=== PATIENT | female | born 1950 | race Caucasian/White ===

== ENCOUNTER 2017-09-21 05:37 | Inpatient (IN) | payer MEDICARE ==
[2017-09-21 06:16] LABS: Hematocrit 39.6 % (36.0-47.0); Mean Platelet Volume 9.2 fL (7.4-10.4); Red Blood Cell (RBC) Count 4.34 mill/uL (4.20-5.40); White Blood Cell (WBC) Count 21.4 thou/uL (4.8-10.8)
[2017-09-21 06:22] LABS: PTT 34.7 SEC (22.9-36.1); Prothrombin Time 15.8 SEC (12.0-14.7)
[2017-09-21 06:26] LABS: Lactic Acid - Sepsis 1.5 mmol/L (0.5-2.2)
[2017-09-21 06:32] LABS: ALT (SGPT) 16 U/L (8-55); AST (SGOT) 27 U/L (5-34); Alkaline Phosphatase 54 U/L (40-150); Anion Gap 12 mmol/L (10-20); BUN (Urea Nitrogen) 17 mg/dL (9.8-20.1); Band 6 % (5-11); Calc. Creatinine Clearance 0 mL/min (70-130); Calcium 8.5 mg/dL (7.8-10.44); Carbon Dioxide 26 mmol/L (23-31); Chloride 103 mmol/L (98-107); Estimated GFR-MDRD 59; Globulin 3.2 g/dL (2.4-3.5); Neutrophil 85 % (42-75); Protein, Total 6.5 g/dL (6.0-8.3)
[2017-09-21 07:30] LABS: Bilirubin Negative (Negative); Blood, Urine Moderate (Negative); Glucose, Urine (Dipstick) Negative (Negative); Ketone, Urine Negative (Negative); Nitrite Negative (Negative); Protein, Urine (Dipstick) Negative (Neg-Trace)
[2017-09-21 07:31] LABS: Hyaline Casts/LPF 0-3 HYALINE CAST LPF (0-3 Hyaline); Squamous Epithelial 0-3 HPF (0-3); WBC/HPF 0-3 HPF (0-3)
[2017-09-21 07:48] LABS: Bacteria/HPF 1+ HPF (None Seen); RBC/HPF 0-3 HPF (0-3)
[2017-09-21 07:49] LABS: Yeast-All Forms None Seen HPF (None Seen)
[2017-09-21 08:23] VITALS: BMI 40.4
--- NOTE | 2017-09-21 08:39 | RAD ---
CHEST ONE VIEW: History: Abdominal pain. Comparison: None. FINDINGS: Atherosclerosis of the aorta. Normal cardiac silhouette. The pulmonary vessels and hilum are normal. Costophrenic angles are clear. No masses. No consolidation. No pneumothorax or osseous abnormalities. IMPRESSION: 1. No acute cardiopulmonary process. 2. Atherosclerosis. POS: [facility]
[2017-09-21] MEDS ORDERED: Ondansetron HCl/PF 4 MG/2 ML Vial IVP PRN ×2 (08:40→10:01)
[2017-09-21] MEDS ORDERED: Acetaminophen 325 MG TAB PO PRN (08:40)
[2017-09-21] MEDS ORDERED: Ondansetron ODT 4 MG TAB SL PRN (08:40)
[2017-09-21] MEDS ORDERED: Sodium Chloride 0.9% 1,000 ML IV SCH (08:40)
[2017-09-21] MEDS ORDERED: metroNIDAZOLE 500 MG in Premix Bag 1 BAG IVPB SCH ×2 (09:00→11:00)
[2017-09-21] MEDS ORDERED: Piperacillin/Tazobactam 4.5 GM in Sodium Chloride 0.9% 100 ML IVPB SCH ×2 (10:00→12:00)
[2017-09-21] MEDS ORDERED: Bisacodyl 5 MG TAB PO PRN (10:01)
[2017-09-21] MEDS ORDERED: Ondansetron ODT 4 MG TAB PO PRN (10:01)
[2017-09-21] MEDS ORDERED: cefTRIAXone\\ROCEPHIN 1 GM in Sodium Chloride 0.9% 100 ML IVPB SCH (10:01)
[2017-09-21] MEDS ORDERED: Sodium Chloride 0.9% 500 ML IV SCH (10:30)
[2017-09-21] MEDS: Sodium Chloride 0.9% 1,000 ML IV SCH (11:07)
[2017-09-21] MEDS: cefTRIAXone\\ROCEPHIN 1 GM, Syringe 0.4 ML in Sterile Water 9.6 ML SLOW IVP SCH (11:07)
--- NOTE | 2017-09-21 11:07 | HP ---
PRIMARY CARE PHYSICIAN: [facility], in [place]. CHIEF COMPLAINT: Abdominal pain and hematochezia. HISTORY OF PRESENT ILLNESS: This is a 67-year-old white female with a known history of diverticulosis and polyps on a previous colonoscopy many years ago, possibly with a history of previous diverticulitis or colitis episodes, but they were really self-limited. She reports that she has been having some intermittent cramping pain in her left lower quadrant for the last couple of months. She also has had some weight loss in the last year of about 50 pounds, though she is still quite obese. The patient reports that yesterday around noon , she started having significant cramping left lower quadrant abdominal pain. This did not resolve in 1-2 hours as normal, but lasted all evening. It started after she ate some sausage from [employer]. The patient also ate some cornbread and she was told she should not eat anything with seeds in it or with large pieces like corn. Then last night she had an episode of straining with constipation followed by an episode of diarrhea. She is not certain if it had mucus in it at this time, although she has had previous episode with mucoid diarrhea in the past with her colitis episodes. This was then followed by having quite a few small clots coming out into the toilet. She also had bright red blood when she wiped. The patient had continued pain, so she went to the emergency room at [facility] in [place]. There the patient had a noncontrast CT scan of the abdomen which showed thickening at the upper sigmoid consistent with colitis along with some nearby stranding. She was transferred here for a GI bleed and colitis for a GI consult. The patient was noted to have a significant leukocytosis of 21,000, but no fever, no vital sign abnormalities. She has normal H&H at the outside hospital. PAST MEDICAL HISTORY: 1. Hypertension. 2. Diverticulosis. 3. Recurrent colitis. PAST SURGICAL HISTORY: 1. Hysterectomy. 2. Open cholecystectomy. ALLERGIES: CODEINE causes a rash, also allergic to AZITHROMYCIN, CIPROFLOXACIN , ASPIRIN causes a nosebleed. She has never had a reaction to iodinated contrast, but she has a daughter and mother who both had life threatening reactions, so she does not ever want to get it. MEDICATIONS: 1. Amlodipine 10mg po daily 2. Lisinopril 40mg po daily 3. HCTZ 25mg po daily 4. Loratidine 10mg po daily 5. Tylenol prn 6. Tagament prn SOCIAL HISTORY: The patient smokes 1 pack per day for at least the last 30 years. No alcohol or illicit drug use. She is . FAMILY HISTORY: Mother with diabetes. REVIEW OF SYSTEMS: CONSTITUTIONAL: No fevers. She has had some chills at night for the last couple of months, weight loss as per HPI. HEENT: No double vision or blurred vision. She does occasionally have rainbow color aura without falling migraine. ENT: She has sinus allergies from pollen on and off and no acute changes, no sore throat. CARDIOVASCULAR: No chest pain, no palpitations, no racing heart. PULMONARY: No coughing, wheezing or shortness of breath. GASTROINTESTINAL: See HPI. No nausea or vomiting. She has not had any further bowel movements or blood from her bottom this morning. GENITOURINARY: No dysuria or hematuria. MUSCULOSKELETAL: She has chronic lower extremity bilateral pain on and off from arthritis. No other significant musculoskeletal problems. SKIN: No rashes or other lesions she has noted. NEUROLOGIC: No numbness, tingling or focal weakness. PHYSICAL EXAMINATION: VITAL SIGNS: Blood pressure 83/51 on the floor, but with a pulse of 78, respirations 16, O2 sat 98%, temperature 99.3. GENERAL: This is a well-developed, obese white female in no apparent distress. EYES: Pupils equal, round, and reactive to light. Extraocular movements intact. Oropharynx clear without lesions, erythema or exudate. NECK: Supple, without adenopathy, no thyroid nodules or enlargement. HEART: Regular rate and rhythm, no murmurs, rubs or gallops. LUNGS: Clear to auscultation bilaterally, no wheezes, crackles or rhonchi. ABDOMEN: Soft, tender to palpation and worse in the left upper quadrant and some in her left lower quadrant, mild guarding, no rebound tenderness, no masses palpable. Abdomen is quite obese. EXTREMITIES: No clubbing, cyanosis or edema. SKIN: No rashes or other lesions. NEUROLOGIC: Cranial nerves intact and equal bilaterally without facial droop. Deep tendon reflexes 2+ in all extremities. Strength 5/5 in all extremities. PSYCHIATRIC: Alert and oriented x3, normal mood and affect. LABORATORY: White blood cell count of 21,000, neutrophils 85%, bands 6, hemoglobin and hematocrit are 12.7 and 39.6, platelet count 226. Coagulation profile: PT is a little elevated at 15.8, INR and PTT are normal. Complete metabolic panel was notable only for a potassium of 3.2, glucose of 126 and albumin of 3.3. Urinalysis was without any evidence of infection. EKG: I did review the EKG done in the emergency room. This shows normal sinus rhythm with possible left atrial enlargement and a left bundle branch block. CT scan, I did review the radiology report on the CT scan done at [facility] in [place]. This does show colonic wall thickening involving the primarily splenic flexure of the colon with adjacent stranding suspicious for colitis. ASSESSMENT AND PLAN: 1. Colitis, possibly diverticulitis. The patient does have an elevated white blood cell count, but no fever. She did have some mild hypotension, was asymptomatic here, likely a spurious reading, her previous blood pressures in the emergency room were all in the high 90s systolic, her pulse has not jumped up and she is not on beta blockade currently so it does not appear that she has any sort of significant fluid depletion. The patient's hemoglobin and hematocrit are also normal. At this time, the patient does appear stable. Given the high white count we have started her on IV antibiotics, she got some Zosyn and metronidazole in the emergency room. We will change that to Rocephin and metronidazole combination for diverticulitis. If this causes clinical improvement over the next 24-48 hours, she can be transitioned to oral antibiotics and then the remainder of treatment session at home. 2. Lower gastrointestinal bleed. No evidence of significant blood loss at this time. We will recheck the hemoglobin and hematocrit in the morning. We will give her a little bit of IV fluids. GI has been consulted. For now we will leave her on a clear liquid diet, should they decide to do any sort of endoscopy or other investigation. 3. Hypertension. The patient is currently low normal or hypotensive so we will hold all of her blood pressure medicines at this time. We can resume those if her blood pressure starts coming back up. 4. Gastrointestinal prophylaxis. Put the patient on Pepcid twice a day. 5. Deep venous thrombosis prophylaxis. Put the patient on sequential compression devices and TEDs while in bed. 6. CODE STATUS: The patient is a FULL CODE. Should she be incapacitated her medical decision maker will be her , Sb Evans. MTDD
[2017-09-21] MEDS: metroNIDAZOLE 500 MG in Premix Bag 1 BAG IVPB SCH ×2 (14:14→22:05)
[2017-09-21] MEDS: Acetaminophen 325 MG TAB PO PRN (15:24)
[2017-09-21] MEDS: Famotidine 20 MG TAB PO SCH (20:28)
--- NOTE | 2017-09-22 02:33 | CON ---
DATE OF CONSULTATION: 09/21/2017 REASON FOR CONSULTATION: Rectal bleeding, "colitis." HISTORY OF PRESENT ILLNESS: Ms. Evans is a 67-year-old female who was transferred to this emergency room from [facility] for GI bleeding. She reports that after Thanksgiving, she had been constipated and was really constipated into last night, then ultimately had diarrhea and severe cram ping with this and leaving. She had couple of bouts of diarrhea and then saw the blood and then was having quite a bit of cramping, so went to the emergency room. There, she had a CAT scan that showed some inflammation in the colon in the splenic flexure. She had a white count of 21,000. She was he modynamically stable, although with CAT scan findings and lack of GI or surgical backup at the [facility] in [place], she was transferred here for admission. The patient states she has had intermittent problems with her colon and has been told she had "colitis" and that she cannot eat things with nuts and seeds, times in the past she had been treated for antibiotics and her sisters have had the same p roblem. She reports a weight loss of about 50 pounds in the past year. She denies any dysphagia or odynophagia. She has had a colonoscopy in the remote past, at which time she had a polyp. She does not remember when that was but it was apparently at [facility] in [place], [place]. At the [facility], she had a negative UA, creatinine of 1.2, BUN of 18, white count 21,000, hemoglobin of 13. She was mildly hypotensive with systolics in the 90s. She was admitted from the emergency ro om here to the floor early this morning. PAST MEDICAL HISTORY: Hypertension, history of diverticulitis, history of "colitis," although what s he described sounds more like diverticulitis with no care center manager that follows her on a routine basis. PAST SURGICAL HISTORY: Hysterectomy, open cholecystectomy. ALLERGIES: CODEINE, AZITHROMYCIN, CIPROFLOXACIN, ASPIRIN. MEDICATIONS AT HOME: Amlodipine, lisinopril, hydrochlorothiazide, loratadine, Tylenol, and Tagamet. SOCIAL HISTORY: The patient smokes a pack per day and has for 30 years. She does not use drugs or a lcohol. She is . FAMILY HISTORY: Mother has diabetes. Sisters have colon problems too. REVIEW OF SYSTEMS: Negative for dysphagia, odynophagia, melena, hematochezia, or hematemesis other t josue the hematochezia with this episode. PHYSICAL EXAMINATION: VITAL SIGNS: Temperature 100.3, pulse 78, blood pressure 111/55. LUNGS: Clear. HEART: Regular rate and rhythm, without clicks or murmurs. ABDOMEN: Soft. There is mild tenderness in the left upper quadrant. There is no rebound or guardin g. LABORATORY DATA: Her potassium was 3.2, BUN and creatinine were 17 and 0.94. LFTs were normal. Whi te count was 21,000, hemoglobin was 12.7, platelet count was 226. ASSESSMENT: This is a 67-year-old female who had acute onset of abdominal pain and hematochezia with an area of colitis in the sigmoid colon. This would most likely fit with ischemic colitis. She was mildly hypotensive on arrival at the outside hospital and here, and she was resuscitated with IV flu ids. She has been started on antibiotics of Flagyl and ceftriaxone and she is on IV fluids at 75 mL an hour normal saline and seems to be improving. She has had no bleeding since admission. RECOMMENDATIONS: 1. Continue antibiotics and IV fluids. We will treat her as ischemic colitis. If she has worsening bleeding or decompensation clinically, may need to consider endoscopy, otherwise would likely treat her and see her pain and prove before embarking any type of endoscopy as there is increased risk of p erforation with an acutely inflamed colon. If she begins to have significant diarrhea, we can get a stool for Clostridium difficile. 2. With regard to her history of weight loss, I think it would be reasonable for her to get a chest x-ray. She is a smoker. We will continue to follow along with you.
[2017-09-22] MEDS: Acetaminophen 325 MG TAB PO PRN (04:07)
[2017-09-22 04:47] LABS: #Eosinphils 0.1 thou/uL (0.0-0.7); #Lymphocytes 1.7 thou/uL (1.20-3.40); #Monocytes 0.6 thou/uL (0.11-0.59); #Neutrophils 12.9 thou/uL (1.40-6.50); %Basophils 0.1 % (0.0-1.0); %Eosinophils 0.4 % (0.0-10.0); %Lymphocytes 11.2 % (21.0-51.0); %Monocytes 4.1 % (0.0-10.0); Mean Platelet Volume 9.4 fL (7.4-10.4); White Blood Cell (WBC) Count 15.3 thou/uL (4.8-10.8)
[2017-09-22 04:59] LABS: Anion Gap 6 mmol/L (10-20); BUN (Urea Nitrogen) 11 mg/dL (9.8-20.1); Calc. Creatinine Clearance 126 mL/min (70-130); Calcium 8.2 mg/dL (7.8-10.44); Carbon Dioxide 28 mmol/L (23-31); Chloride 105 mmol/L (98-107); Estimated GFR-MDRD 79
[2017-09-22] MEDS: Potassium Chloride 20 MEQ TAB PO SCH ×2 (06:06→09:18)
[2017-09-22] MEDS: Sodium Chloride 0.9% 1,000 ML IV SCH (06:06)
[2017-09-22] MEDS: metroNIDAZOLE 500 MG in Premix Bag 1 BAG IVPB SCH (06:06)
--- NOTE | 2017-09-22 07:53 | PDOC.PN ---
- Subjective Encounter Start Date: 09/22/17 Encounter Start Time: 08:00 Subjective: Patient with markedly improved symptoms. No more abd cramping, just -: some soreness in LUQ with pressure. One minimally bloody stool overnight. -: No fever. Eating well. - Objective Resuscitation Status: Resuscitation Status FULL:Full Resuscitation MAR Reviewed: Yes Vital Signs & Weight: Vital Signs (12 hours) Temp Pulse Resp BP Pulse Ox 09/22/17 04:16 98.6 F 72 16 114/56 L 99 09/22/17 00:59 94 L 09/21/17 23:48 99 F 71 16 108/54 L 96 09/21/17 20:07 98.9 F 71 16 96/54 L 94 L 09/21/17 20:00 98.9 F 71 16 94 L Weight Weight 242 lb 8 oz I&O: 09/21/17 09/22/17 09/23/17 06:59 06:59 06:59 Intake Total 1802 Balance 1802 Result Diagrams: 09/22/17 04:21 09/22/17 04:21 Phys Exam - Physical Examination Constitutional: NAD Respiratory: no wheezing, no rales, no rhonchi, clear to auscultation bilateral Cardiovascular: RRR, no significant murmur Gastrointestinal: soft, positive bowel sounds mild TTP LUQ without guarding Neurological: non-focal, moves all 4 limbs Psychiatric: normal affect, A&O x 3 Dx/Plan (1) Colitis Code(s): K52.9 - NONINFECTIVE GASTROENTERITIS AND COLITIS, UNSPECIFIED Status : Acute (2) Lower GI bleed Code(s): K92.2 - GASTROINTESTINAL HEMORRHAGE, UNSPECIFIED Status: Acute Comment: due to colitis, not hemodynamically significant, H/H dropped just a bit to 11 after IV fluids - Plan cont current plan of care, continue antibiotics, DVT proph w/SCDs Symptoms markedly improved. WBC coming down. No vital sign abnormalities. -: Will transition to oral antibiotics. Home when ok with GI. Will need -: outpatient follow up and colonoscopy once colitis resolves. * . - Discharge Day Encounter end time: 08:30
--- NOTE | 2017-09-22 08:32 | RAD ---
PA AND LATERAL CHEST: Date: 09/22/17 HISTORY: Smoker with weight loss. FINDINGS: Heart size is borderline enlarged. Aorta is tortuous with atherosclerotic change. The lungs show some minimal interstitial changes in the bases. This is more prominent than on the 09/21/17 study, but th e difference may just be technique related. IMPRESSION: 1. Borderline cardiomegaly. 2. Minimal interstitial changes of lung bases, possibly chronic in nature. POS: [facility]
[2017-09-22] MEDS: Famotidine 20 MG TAB PO SCH (09:18)
[2017-09-22] MEDS: cefTRIAXone\\ROCEPHIN 1 GM, Syringe 0.4 ML in Sterile Water 9.6 ML SLOW IVP SCH (09:18)
[2017-09-22 13:43] LABS: Anion Gap 6 mmol/L (10-20); BUN (Urea Nitrogen) 10 mg/dL (9.8-20.1); Calc. Creatinine Clearance 126 mL/min (70-130); Calcium 8.2 mg/dL (7.8-10.44); Carbon Dioxide 29 mmol/L (23-31); Chloride 105 mmol/L (98-107); Estimated GFR-MDRD 79
[2017-09-22] MEDS ORDERED: Potassium Chloride 20 MEQ TAB PO SCH (14:15)
[2017-09-22] MEDS ORDERED: metroNIDAZOLE 500 MG TAB PO SCH (15:00)
--- NOTE | 2017-09-22 15:11 | PRG ---
DATE OF SERVICE: 09/22/2017 Ms. Evans is feeling better. She is eating. She has less pain. She has had no bleeding. She did switch to oral antibiotics. Her potassium is a little bit low and this is being replaced. PHYSICAL EXAMINATION: VITAL SIGNS: Temperature 98.6, pulse 69, blood pressure 122/58. LUNGS: Clear. CARDIAC: Regular. ABDOMEN: Nontender. LABORATORY STUDIES: White count down to 15.3, hemoglobin 11, platelet count 179, potassium was 2.9 t his morning, it is 3.4 now. ASSESSMENT: Mild colitis in the splenic flexure, likely ischemic. RECOMMENDATIONS: Advance to a low residue diet, continue 7-10 days of Flagyl and Levaquin. If the p atient is amenable will get her to follow up in the office for a colonoscopy in 4-6 weeks.
[2017-09-22 15:33] VITALS: BP 134/63; TEMP 98.4
[2017-09-22] MEDS ORDERED: Cefdinir 300 MG CAP PO SCH (21:00)
--- NOTE | 2017-09-23 00:01 | DIS ---
PRIMARY CARE PHYSICIAN: Out of town. DIAGNOSES ON ADMISSION: 1. Colitis. 2. Lower gastrointestinal bleed. 3. Hypertension. DIAGNOSES AT DISCHARGE: 1. Mild colitis, likely ischemic. 2. Lower gastrointestinal bleed, resolving, secondary to #1. 3. Hypokalemia. 4. Hypertension. CONSULTATIONS: Gastroenterology, Dr. Mays. PROCEDURES: None. PERTINENT LABORATORY DATA: Hemoglobin at discharge 11. Potassium was down to 2.9 during the hospita lization, up to 3.4 at discharge. SUMMARY OF HOSPITAL COURSE: This is a 67-year-old white female with a known history of diverticulosi s and previous colitis episodes, who came in because of abdominal pain and diarrhea with bright red b lood and clots. She was transferred from an outside hospital for GI consultation. The patient did h ave a CT scan that showed colitis of the left splenic flexure. She also had elevated white blood fredy l count. The patient was put on IV antibiotics in the hospital. She had marked improvement of her a bdominal cramping and pain, just a little tender on the day of discharge, her diarrhea also improved and she had less blood in it. Leukocytosis, improved during hospitalization. Dr. Mays was consult ed with Gastroenterology and determined this was likely ischemic colitis, but that she would need an outpatient colonoscopy and EGD once the inflammation calms down. The patient was doing well on the d ay of discharge, was ambulating and eating well and is being discharged home. DISCHARGE MANAGEMENT: Discharged home. Follow up with Dr. Mays in 3 weeks and with PCP in 1 week for recheck potassium and CBC. DISCHARGE MEDICATIONS: 1. Cefdinir 300 mg twice a day for 14 days. 2. Metronidazole 500 mg 3 times a day for 10 days. 3. Loratadine 10 mg daily. 4. The patient is to hold her amlodipine 10 mg daily, lisinopril 40 mg daily, and hydrochlorothiazid e 25 mg daily until she sees her primary care doctor later this week as her blood pressures have been running low normal in the hospital without them. DIET: Healthy heart, low sodium diet with low residue. ACTIVITY: As tolerated.
[2017-09-23] MEDS ORDERED: Loratadine 10 MG TAB PO SCH (09:00)
--- NOTE | 2017-10-26 14:25 | EKG ---
Test Reason : SEPSIS Blood Pressure : / mmHG Vent. Rate : 089 BPM Atrial Rate : 089 BPM P-R Int : 172 ms QRS Dur : 136 ms QT Int : 428 ms P-R-T Axes : 046 -12 120 degrees QTc Int : 520 ms Normal sinus rhythm Possible Left atrial enlargement Left bundle branch block Abnormal ECG Confirmed by JOSE MOORE D.O. ([id number]), map editor JAMAAL WILKINSON ([id number]) on 10/26/2017 2:24:39 PM Referred By: Confirmed By:JOSE MOORE D.O.
== END 2017-09-22 16:01 | disposition home or self-care (01) | DRG 394 ==
LOC: ERS 05:37 → 2SE 06:10
PROVIDERS: ADMIT Internal Medicine; ATTEND Internal Medicine
DX: K55.9 Vascular disorder of intestine, unspecified (principal); Z68.41 Body mass index [BMI] 40.0-44.9, adult; I95.9 Hypotension, unspecified; K92.1 Melena; E66.9 Obesity, unspecified; I10 Essential (primary) hypertension; D72.829 Elevated white blood cell count, unspecified; Z90.49 Acquired absence of other specified parts of digestive tract; Z90.710 Acquired absence of both cervix and uterus; Z88.1 Allergy status to other antibiotic agents; Z88.5 Allergy status to narcotic agent; Z88.8 Allergy status to other drugs, medicaments and biological substances; F17.200 Nicotine dependence, unspecified, uncomplicated; E87.6 Hypokalemia
CPT/HCPCS: 36415; 71010; 71020; 80048; 80053; 81003; 81015; 83605; 85025; 85610; 85730; 86850; 86900; 86901; 93005; A4216; J0696; J2543; J7050